=== PATIENT | male | born 1995 | race Caucasian/White ===

== ENCOUNTER 2017-02-04 16:45 | Emergency (ER) | payer OTHER ==
[~2017-02-04] VITALS: Ht 182.9 cm; Wt 78.5 kg
[2017-02-04 17:31] LABS: ABSOLUTE NEUTROPHILS 4.6 thou/uL (1.4-8.2); BASOPHILS 0.6 % (0.0-2.0); EOSINOPHILS 0.1 % (0.0-3.0); HEMOGLOBIN 13.7 gm/dL (14.0-18.0); LYMPHOCYTES 16.4 % (24.0-44.0); MCH 30.7 pg (26.0-34.0); MCHC 35.2 g/dL (28.0-37.0); MCV 87.3 fL (80.0-100.0); MONOCYTES 6.6 % (1.0-8.0); PLATELET COUNT 126 thou/uL (150-400); POLYS 76.3 % (36.0-66.0); RBC 4.47 mil/uL (4.50-6.00); RDW 12.8 % (10.5-14.5); WBC 6.1 thou/uL (4.0-11.0)
[2017-02-04 17:32] LABS: MANUAL DIFF NO
[2017-02-04 17:41] LABS: CREATININE 1.2 mg/dL (0.7-1.3); POTASSIUM 3.7 mmol/L (3.5-5.1)
[2017-02-04 17:47] LABS: ALBUMIN 3.6 g/dL (3.4-5.0); DIRECT BILIRUBIN 0.1 mg/dL (<0.1-0.3); TOTAL BILIRUBIN 0.6 mg/dL (<0.1-1.0); TOTAL PROTEIN 7.3 g/dL (6.4-8.2)
[2017-02-04] MEDS ORDERED: VENTOLIN HFA 1818 GM INH (18:17)
[2017-02-04] MEDS ORDERED: IBUPROFEN 600600 M1 PO (18:17)
[2017-02-04] MEDS ORDERED: ZPAK PO (18:17)
[2017-02-04] MEDS ORDERED: PREDNISONE 20 M20 MG PO (18:17)
[2017-02-04 18:19] VITALS: BP 121/66
== END 2017-02-04 18:29 | disposition home or self-care (01) ==
LOC: ER 16:45
PROVIDERS: Nurse Practitioner
DX: J18.9 Pneumonia, unspecified organism (principal); F12.10 Cannabis abuse, uncomplicated